=== PATIENT | male | born 1965 | race Asian ===

== ENCOUNTER 2017-08-09 13:09 | Emergency (ER) | END 2017-08-09 18:46 | disposition left against medical advice (07) ==

== ENCOUNTER 2018-10-17 09:10 | Observation (INO) | payer BC, OTHER ==
[~2018-10-17] VITALS: Ht 167.6 cm; Wt 79.5 kg
[~2018-10-17 09:10] MED LIST: AMLO-218 PO; ATOR40TA68 PO; LISI-471 PO; SITA100T11 PO; TAMS-14 PO
[2018-10-17] MEDS ORDERED: ASPIRIN 325 MG TAB PO STA (10:53)
[2018-10-17] MEDS ORDERED: SITA100T11 PO (12:27)
[2018-10-17] MEDS ORDERED: TAMS-14 PO (12:27)
[2018-10-17] MEDS ORDERED: POTA15TA9 PO (12:28)
[2018-10-17] MEDS ORDERED: GABA100C14 PO (12:28)
[2018-10-17] MEDS ORDERED: ALLO100T PO (12:29)
[2018-10-17] MEDS ORDERED: ATOR40TA68 PO (12:29)
[2018-10-17] MEDS ORDERED: LISI-471 PO (12:29)
[2018-10-17] MEDS ORDERED: CARI350T29 PO (12:30)
[2018-10-17] MEDS ORDERED: OMEP20CA16 PO (12:30)
[2018-10-17] MEDS ORDERED: AMLO5TAB4 PO (12:31)
[2018-10-17] MEDS ORDERED: TRAZ-149 PO (12:31)
[2018-10-17] MEDS ORDERED: CANA100T PO (12:31)
--- NOTE | 2018-10-17 13:14 | ERD ---
ER Documentation Chief Complaint Chief Complaint dizziness, cp since monday , cp relief after nitro HPI 53-year-old male presents to the emergency department complaining of chest pain. Patient states that over the last 3 days or so he is having nonspecific chest pain. The pain is nonspecific and non-provoked. It is in the center part of his chest and nonradiating. It is associated with no significant shortness of breath, nausea vomiting or diaphoresis. Patient took nitroglycerin and got some relief of the chest discomfort. ROS All systems reviewed and are negative except as per history of present illness. Medications Home Meds Reported Medications Canagliflozin (Invokana) 100 Mg Tablet, 100 MG PO QAM, TAB 10/17/18 Amlodipine Besylate* (Norvasc*) 5 Mg Tablet, 5 MG PO DAILY, TAB 10/17/18 Trazodone Hcl* (Desyrel*) 50 Mg Tab, 50 MG PO QHS, #30 TAB 10/17/18 Carisoprodol* (Carisoprodol*) 350 Mg Tablet, 350 MG PO BID PRN for MUSCLE SPASMS, TAB 10/17/18 Omeprazole* (Omeprazole*) 20 Mg Capsule.dr, 20 MG PO DAILY, #30 CAP 10/17/18 Atorvastatin* (Atorvastatin*) 40 Mg Tablet, 40 MG PO QHS, #30 TAB 10/17/18 Allopurinol* (Allopurinol*) 100 Mg Tablet, 100 MG PO TID, TAB 10/17/18 Lisinopril* (Lisinopril*) 20 Mg Tablet, 20 MG PO DAILY, #30 TAB 10/17/18 Gabapentin* (Gabapentin*) 100 Mg Capsule, 100 MG PO TID, #90 CAP 10/17/18 Potassium Citrate* (Potassium Citrate* ER) 15 Meq Tablet.er, 15 MEQ PO BID, TAB.SA 10/17/18 Tamsulosin Hcl* (Flomax*) 0.4 Mg Cap.er.24h, 0.4 MG PO HS, CAP 10/17/18 Sitagliptin* (Januvia*) 100 Mg Tablet, 100 MG PO QHS, #30 TAB 10/17/18 Discontinued Reported Medications Atorvastatin* (Atorvastatin*) 40 Mg Tablet, 40 MG PO QHS, #30 TAB 01/12/16 Lisinopril* (Lisinopril*) 20 Mg Tablet, 20 MG PO DAILY, TAB 04/20/15 Amlodipine Besylate* (Norvasc*) 10 Mg Tablet, 10 MG PO DAILY, TAB 04/20/15 Sitagliptin* (Januvia*) 100 Mg Tablet, 100 MG PO DAILY, TAB 04/20/15 Discontinued Scripts Tamsulosin Hcl* (Flomax*) 0.4 Mg Cap.er.24h, 0.4 MG PO BID, #30 CAP Prov:RAMILA PILLAI MD 09/02/15 Allergies Allergies: Coded Allergies: Penicillins (Verified Allergy, Severe, HIVES, 10/17/18) acetaminophen (Verified Allergy, Unknown, 10/17/18) codeine (Unverified Allergy, Unknown, HIVES, 10/17/18) fentanyl (Unverified Allergy, Unknown, 10/17/18) hydrocodone (Verified Allergy, Unknown, 10/17/18) hydromorphone (Verified Allergy, Unknown, HIVES, 10/17/18) ibuprofen (Verified Allergy, Unknown, 10/17/18) ketorolac (Unverified Allergy, Unknown, HIVES, 10/17/18) meperidine (Unverified Allergy, Unknown, hives, 10/17/18) morphine (Unverified Allergy, Unknown, HIVES, 10/17/18) tramadol (Verified Allergy, Unknown, HIVES, 10/17/18) Uncoded Allergies: IV DYE (Allergy, Unknown, 06/10/15) PMhx/Soc History of Surgery: Yes (left nephrectomy, L shoulder, R elbow) Anesthesia Reaction: No Hx Neurological Disorder: No Hx Respiratory Disorders: No Hx Cardiac Disorders: Yes (HTN) Hx Psychiatric Problems: No Hx Miscellaneous Medical Probl: Yes (diabetes II, CKD, kidney stones, HEART STENT) Hx Alcohol Use: Yes Hx Substance Use: No Hx Tobacco Use: No Smoking Status: Former smoker FmHx History of heart disease Physical Exam Vitals Vital Signs Date Temp Pulse Resp B/P (MAP) Pulse Ox O2 O2 Flow FiO2 Time Delivery Rate 10/17/18 98.2 105 18 157/79 99 09:14 (105) Physical Exam GENERAL: The patient is well developed and appropriate for usual state of health in no apparent distress HEENT: Pupils equal, round, and reactive to light. EOMI. There is no scleral icterus. NECK: C-spine is soft and supple, there is no meningismus. There is no cervical lymphadenopathy. LUNGS: Clear to auscultation bilaterally. There are no rales, wheezes or rhonchi. HEART: Regular rate and rhythm, no murmurs, clicks, rubs or gallops. ABDOMEN: Soft, non-tender, non-distended. There are bowel sounds in all four quadrants. No rebound or guarding. EXTREMITIES: There is no peripheral cyanosis or edema. No focal swelling or erythema. NEURO: The patient moves all four extremities with 5/5 strength. Cranial nerves II - XII are intact. Normal gait. Alert and oriented SKIN: There is no apparent rash or petechiae. HEME/LYMPHATIC: There is no evidence of excessive bruising or lymphedema. PSYCHIATRIC: The patient does not appear anxious or depressed. Result Diagram: 10/17/18 1110 10/17/18 1110 Results 24 hrs Laboratory Tests Test 10/17/18 11:10 White Blood Count 4.7 10^3/ul Red Blood Count 4.83 10^6/ul Hemoglobin 15.2 g/dl Hematocrit 44.6 % Mean Corpuscular Volume 92.3 fl Mean Corpuscular Hemoglobin 31.5 pg Mean Corpuscular Hemoglobin Concent 34.1 g/dl Red Cell Distribution Width 12.4 % Platelet Count 188 10^3/UL Mean Platelet Volume 10.2 fl Immature Granulocytes % 0.200 % Neutrophils % 64.2 % Lymphocytes % 24.7 % Monocytes % 7.7 % Eosinophils % 2.8 % Basophils % 0.4 % Nucleated Red Blood Cells % 0.0 /100WBC Immature Granulocytes # 0.010 10^3/ul Neutrophils # 3.0 10^3/ul Lymphocytes # 1.2 10^3/ul Monocytes # 0.4 10^3/ul Eosinophils # 0.1 10^3/ul Basophils # 0.0 10^3/ul Nucleated Red Blood Cells # 0.0 10^3/ul Sodium Level 143 mmol/L Potassium Level 4.1 mmol/L Chloride Level 105 mmol/L Carbon Dioxide Level 28 mmol/L Anion Gap 10 Blood Urea Nitrogen 17 mg/dl Creatinine 1.20 mg/dl Est Glomerular Filtrat Rate mL/min > 60 mL/min Glucose Level 94 mg/dl Calcium Level 9.5 mg/dl Total Bilirubin 0.3 mg/dl Direct Bilirubin 0.00 mg/dl Indirect Bilirubin 0.3 mg/dl Aspartate Amino Transf (AST/SGOT) 36 IU/L Alanine Aminotransferase (ALT/SGPT) 35 IU/L Alkaline Phosphatase 93 IU/L Troponin I < 0.012 ng/ml Total Protein 7.9 g/dl Albumin 4.5 g/dl Globulin 3.40 g/dl Albumin/Globulin Ratio 1.32 Current Medications Medications Dose Sig/Kayla Start Time Status Last (Trade) Ordered Route PRN Stop Time Admin Dose Reason Admin Aspirin 325 mg ONCE STAT 10/17/18 DC 10/17/18 (Aspirin) PO 10:53 11:25 10/17/18 10:54 Procedures/MDM Patient was taken to a room, seen and evaluated. Comfort measures were initiated. Diagnostic tests were ordered and reviewed. 3 LEAD RHYTHM STRIP: Normal sinus rhythm without ectopy EK lead EKG reviewed by myself: Normal Sinus Rhythm Normal [place] and intervals No ST elevation, depression, or T wave inversion, nonspecific ST and T wave changes without ST elevation Impression: Nondiagnostic EKG Second EKG reviewed by myself: Rate/rhythm: Normal sinus rhythm no ectopy [place]/intervals: Normal Ischemia: No ST elevation, ST depression, T wave inversion Impression: Nonischemic EKG RADIOLOGY: Reviewed with the radiologist CONSULTATION: 1310: We are awaiting case management for placement REEVALUATION: 1310: Diagnostic tests are initially nondiagnostic without evidence of obvious ischemia. Patient remains comfortable. MEDICAL DECISION MAKIN-year-old male with nonspecific chest pain and nonspecific EKG changes with a family history of heart problems presents the emergency department nonspecific chest pain. Initial diagnostic evaluation has been nondiagnostic with no evidence of obvious ischemia, aortic dissection or other high-risk concerns. However, given his multiple risk factors, he will require admission to the hospital for observation and monitoring. Placement into the hospital either here or at an outside facility will be arranged via case management. Departure Diagnosis: Primary Impression: Chest pain Condition: NICHOLAS Thrasher Oct 17, 2018 13:14
[2018-10-17] MEDS ORDERED: ONDANSETRON 4 MG INJ IV PRN ×2 (15:00→15:30)
[2018-10-17] MEDS ORDERED: NACL 0.9% 3 ML SYG IV SCH (15:30)
[2018-10-17] MEDS ORDERED: NITROGLYCERIN (SL) 0.4 MG TAB SL PRN (15:30)
[2018-10-17] MEDS ORDERED: DIPHENHYDRAMINE 50 MG INJ IV PRN (15:30)
[2018-10-17] MEDS ORDERED: morphine 2 MG INJ IV PRN ×2 (15:30→23:30)
[2018-10-17] MEDS ORDERED: CARISOPRODOL 350 MG TAB PO PRN (15:30)
--- NOTE | 2018-10-17 15:41 | HP ---
Date/Time of Note Date/Time of Note DATE: 10/17/18 TIME: 15:41 Assessment/Plan VTE Prophylaxis Pharmacological prophylaxis: other Lines/Catheters IV Catheter Type (from Nrsg): Saline Lock Assessment/Plan Hospital Course Patient is a male with past medical history significant for coronary artery disease with a stent, hypertension, diabetes mellitus, and left nephrectomy who presents to [facility] for chest pain. Patient states that for the past 2 days he has felt this central intermittent chest pain sensation. Patient states that it would happen regardless of movement or laying still. Patient states that there is nothing that necessarily brings it on or makes it grossly. Patient follows up with a regular doctor and on no basis as well as a rolling machine operator but does not go to this hospital. Patient takes a baby aspirin a day and takes all his other medication as well. Patient currently states the chest pain is nearly gone after a dose of nitroglycerin in the ED. Patient also states that there was some mild dizziness associated with this chest pain however right now he is not dizzy. Patient denies currently shortness of breath, nausea, vomiting, bowel or bladder dysfunction. 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 Objective Physical exam General: Patient is laying in bed and answers questions appropriately Mentation: Patient is alert and oriented 4, Head: Normocephalic atraumatic Eyes: EOMI, pupils reactive to light Neck: Supple, nontender, midline Respiratory: Clear to auscultation bilaterally Cardiovascular: regular rate, no obvious murmurs Gastrointestinal: non-tender to palpation, bowel sounds heard. Neurological: Moves all extremities spontaneously Skin: No new skin lesions Assessment and plan Chest pain, rule out ACS -Troponin negative, trend troponins -Cardiology consulted, patient's outpatient rolling machine operator does not come here but his partner does, we will see him in the morning -Nitroglycerin as needed -Aspirin -Statin -Pain control as tolerated, patient is mildly allergic to most narcotic pain medication however did do well with morphine in the past with Benadryl if needed, patient will try to only use nitroglycerin for chest pain -Echo Diabetes mellitus -Insulin sliding scale Coronary artery disease -Continue home meds, pt has stent done 4 years ago -Continue baby aspirin, patient takes daily Lower extremity neuropathy -Continue gabapentin -Muscle spasms -Chronic, continue Soma as needed History of left nephrectomy -Monitor, chronic Hypertension -Continue home meds Disposition -Continue to trend troponins, cardiology consultation pending Result Diagram: 10/17/18 1110 10/17/18 1110 Results 24hrs Laboratory Tests Test 10/17/18 11:10 White Blood Count 4.7 #L Red Blood Count 4.83 Hemoglobin 15.2 Hematocrit 44.6 Mean Corpuscular Volume 92.3 Mean Corpuscular Hemoglobin 31.5 Mean Corpuscular Hemoglobin Concent 34.1 Red Cell Distribution Width 12.4 Platelet Count 188 # Mean Platelet Volume 10.2 Immature Granulocytes % 0.200 Neutrophils % 64.2 Lymphocytes % 24.7 Monocytes % 7.7 Eosinophils % 2.8 Basophils % 0.4 Nucleated Red Blood Cells % 0.0 Immature Granulocytes # 0.010 Neutrophils # 3.0 Lymphocytes # 1.2 Monocytes # 0.4 Eosinophils # 0.1 Basophils # 0.0 Nucleated Red Blood Cells # 0.0 Sodium Level 143 Potassium Level 4.1 Chloride Level 105 Carbon Dioxide Level 28 Anion Gap 10 Blood Urea Nitrogen 17 Creatinine 1.20 Est Glomerular Filtrat Rate mL/min > 60 Glucose Level 94 Calcium Level 9.5 Total Bilirubin 0.3 Direct Bilirubin 0.00 Indirect Bilirubin 0.3 Aspartate Amino Transf (AST/SGOT) 36 Alanine Aminotransferase (ALT/SGPT) 35 Alkaline Phosphatase 93 Troponin I < 0.012 Total Protein 7.9 Albumin 4.5 Globulin 3.40 H Albumin/Globulin Ratio 1.32 HPI/ROS Admit Date/Time Admit Date/Time PMH/Family/Social Past Medical History Medications Current Medications Ondansetron HCl (Zofran Inj) 4 mg ER BRIDGE PRN IV NAUSEA/VOMITING; Start 10/17/18 at 15:00; Stop 10/18/18 at 14:59 Coded Allergies: Penicillins (Verified Allergy, Severe, HIVES, 10/17/18) acetaminophen (Verified Allergy, Unknown, 10/17/18) codeine (Unverified Allergy, Unknown, HIVES, 10/17/18) fentanyl (Unverified Allergy, Unknown, 10/17/18) hydrocodone (Verified Allergy, Unknown, 10/17/18) hydromorphone (Verified Allergy, Unknown, HIVES, 10/17/18) ibuprofen (Verified Allergy, Unknown, 10/17/18) ketorolac (Unverified Allergy, Unknown, HIVES, 10/17/18) meperidine (Unverified Allergy, Unknown, hives, 10/17/18) morphine (Unverified Allergy, Unknown, HIVES, 10/17/18) tramadol (Verified Allergy, Unknown, HIVES, 10/17/18) Uncoded Allergies: IV DYE (Allergy, Unknown, 06/10/15) Social History Smoking Status: Former smoker Exam/Review of Systems Vital Signs Vitals Vital Signs Date Temp Pulse Resp B/P (MAP) Pulse Ox O2 O2 Flow FiO2 Time Delivery Rate 10/17/18 98.2 105 18 157/79 99 09:14 (105) JETHRO SCHILLING Oct 17, 2018 15:41
[2018-10-17] MEDS ORDERED: LABETALOL HCL 20MG INJ IV PRN (16:00)
[2018-10-17] MEDS ORDERED: GLUCOSE GEL 15 GRAM TUBE PO PRN ×2 (16:30)
[2018-10-17] MEDS ORDERED: GLUCOSE GEL 15 GRAM TUBE BUCCAL PRN (16:30)
[2018-10-17] MEDS ORDERED: DEXTROSE 50% 50 ML SYRINGE IV PRN ×2 (16:30)
[2018-10-17] MEDS ORDERED: GLUCAGON 1 MG INJ IM PRN (16:30)
[2018-10-17] MEDS: INSULIN ASPART [NOVOLOG] 3 ML PEN SC SCH ×2 (17:58→21:00)
[2018-10-17 20:50] VITALS: BP 142/78; PULSE 65; RESP 18
[2018-10-17 21:00] VITALS: Ht 167.6 cm; Wt 79.5 kg
[2018-10-17] MEDS ORDERED: ATORVASTATIN 40 MG TAB PO SCH (21:00)
[2018-10-17] MEDS ORDERED: TAMSULOSIN (SR) 0.4 MG CAP PO SCH (21:00)
[2018-10-17] MEDS ORDERED: traZODone 50 MG TAB PO SCH (21:00)
[2018-10-17] MEDS: ALLOPURINOL 100 MG TAB PO SCH (22:12)
[2018-10-17] MEDS: GABAPENTIN 100 MG CAP PO SCH (22:12)
[2018-10-17 23:53] VITALS: BP 158/79; PULSE 68; RESP 18
[2018-10-18] VITALS (7 sets, daily range): BP systolic 118–126; BP diastolic 62–68; PULSE 46–67; RESP 18
[2018-10-18] MEDS ORDERED: ACCU-CHEK XX SCH (02:00)
[2018-10-18] MEDS ORDERED: PANTOPRAZOLE (EC) 40 MG TAB PO SCH (06:00)
[2018-10-18] MEDS: INSULIN ASPART [NOVOLOG] 3 ML PEN SC SCH ×2 (08:00→12:13)
[2018-10-18] MEDS: ALLOPURINOL 100 MG TAB PO SCH ×2 (08:20→12:11)
[2018-10-18] MEDS: GABAPENTIN 100 MG CAP PO SCH ×2 (08:20→12:11)
--- NOTE | 2018-10-18 08:37 | CONS ---
Assessment/Plan Assessment/Plan Hospital Course (Demo Recall) Chest pain: Atypical location, nonexertional and never resolved even post PCI. Trops negative. He has had stress testing for this in the past but most recent one was >1 yr prior. Repeat stress test is appropriate for evaluation and to avoid recurrent hospitalizations. CAD s/p PCI 2014 DM HTN Left nephrectomy Iodine allergy: hives during cath -Lexiscan today. If normal, ok for d/c -ASA, lipitor -lisinopril, amlodipine -reported bradycardia with BB so no longer taking it Consultation Date/Type/Reason Admit Date/Time Date of Consultation: Oct 18, 2018 Type of Consult Cardiology Reason for Consultation Chest pain Requesting Provider: JETHRO SCHILLING Date/Time of Note DATE: 10/18/18 TIME: 08:30 Hx of Present Illness 53 yo M with a h/o CAD s/p PCI 2014, DM, HTN, left nephrectomy, who presented with chest pain. The pain is left lateral lower chest wall and occurs at random times. He first had it 4 yrs ago leading to a stress test and PCI. He then continued to have random episodes unrelated to activity 2-3 times per week and has had continued workup including stress test 1 yr ago which was normal. 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 He was given morphine in the ED and discharged. The pain has no predictable quality and comes on at very random times. No orthopnea, PND, edema, dyspnea. per hPI Past Medical History per HPI Home Meds Reported Medications Canagliflozin (Invokana) 100 Mg Tablet, 100 MG PO QAM, TAB 10/17/18 Amlodipine Besylate* (Norvasc*) 5 Mg Tablet, 5 MG PO DAILY, TAB 10/17/18 Trazodone Hcl* (Desyrel*) 50 Mg Tab, 50 MG PO QHS, #30 TAB 10/17/18 Carisoprodol* (Carisoprodol*) 350 Mg Tablet, 350 MG PO BID PRN for MUSCLE SPASMS, TAB 10/17/18 Omeprazole* (Omeprazole*) 20 Mg Capsule.dr, 20 MG PO DAILY, #30 CAP 10/17/18 Atorvastatin* (Atorvastatin*) 40 Mg Tablet, 40 MG PO QHS, #30 TAB 10/17/18 Allopurinol* (Allopurinol*) 100 Mg Tablet, 100 MG PO TID, TAB 10/17/18 Lisinopril* (Lisinopril*) 20 Mg Tablet, 20 MG PO DAILY, #30 TAB 10/17/18 Gabapentin* (Gabapentin*) 100 Mg Capsule, 100 MG PO TID, #90 CAP 10/17/18 Potassium Citrate* (Potassium Citrate* ER) 15 Meq Tablet.er, 15 MEQ PO BID, TAB.SA 10/17/18 Tamsulosin Hcl* (Flomax*) 0.4 Mg Cap.er.24h, 0.4 MG PO HS, CAP 10/17/18 Sitagliptin* (Januvia*) 100 Mg Tablet, 100 MG PO QHS, #30 TAB 10/17/18 Discontinued Reported Medications Atorvastatin* (Atorvastatin*) 40 Mg Tablet, 40 MG PO QHS, #30 TAB 01/12/16 Lisinopril* (Lisinopril*) 20 Mg Tablet, 20 MG PO DAILY, TAB 04/20/15 Amlodipine Besylate* (Norvasc*) 10 Mg Tablet, 10 MG PO DAILY, TAB 04/20/15 Sitagliptin* (Januvia*) 100 Mg Tablet, 100 MG PO DAILY, TAB 04/20/15 Discontinued Scripts Tamsulosin Hcl* (Flomax*) 0.4 Mg Cap.er.24h, 0.4 MG PO BID, #30 CAP Prov:RAMILA PILLAI MD 09/02/15 Medications Current Medications Allopurinol (Zyloprim) 100 mg TID PO Last administered on 10/17/18at 22:12; Admin Dose 100 MG; Start 10/17/18 at 21:00 Amlodipine Besylate (Norvasc) 5 mg DAILY PO ; Start 10/18/18 at 09:00 Atorvastatin Calcium (Lipitor) 80 mg QHS PO Last administered on 10/17/18at 22:11; Admin Dose 80 MG; Start 10/17/18 at 21:00 Carisoprodol (Soma) 350 mg BID PRN PO MUSCLE SPASMS; Start 10/17/18 at 15:30 Gabapentin (Neurontin) 100 mg TID PO Last administered on 10/17/18at 22:12; Admin Dose 100 MG; Start 10/17/18 at 21:00 Lisinopril (Zestril) 20 mg DAILY PO ; Start 10/18/18 at 09:00 Tamsulosin HCl (Flomax) 0.4 mg HS PO Last administered on 10/17/18at 22:11; Admin Dose 0.4 MG; Start 10/17/18 at 21:00 Trazodone HCl (Desyrel) 50 mg QHS PO Last administered on 10/17/18at 22:11; Admin Dose 50 MG; Start 10/17/18 at 21:00 Pantoprazole (Protonix Tab) 40 mg DAILY@06 PO Last administered on 10/18/18 06:25; Admin Dose 40 MG; Start 10/18/18 at 06:00 IV Flush (NS 3 ml) 3 ml PER PROTOCOL IV ; Start 10/17/18 at 15:30 Ondansetron HCl (Zofran Inj) 4 mg Q6H PRN IV NAUSEA/VOMITING Last administered on 10/17/18at 16:52; Admin Dose 4 MG; Start 10/17/18 at 15:30 Aspirin (Aspirin) 81 mg DAILY PO ; Start 10/18/18 at 09:00 Nitroglycerin (Nitroglycerin (Sl Tab) 0.4 Mg) 1 tab Q5M PRN SL .CHEST PAIN Last administered on 10/17/18 22:45; Admin Dose 1 TAB; Start 10/17/18 at 15:30 Morphine Sulfate (morphine) 1 mg Q4H PRN IV SEVERE PAIN LEVEL 7-10 Last administered on 10/17/18at 16:53; Admin Dose 1 MG; Start 10/17/18 at 15:30 Diphenhydramine HCl (Benadryl) 25 mg Q6H PRN IV rash Last administered on 10/17/18 16:52; Admin Dose 25 MG; Start 10/17/18 at 15:30 Diagnostic Test (Pha) (Accu-Chek) 1 ea 02 XX ; Start 10/18/18 at 02:00 Insulin Aspart (Novolog Insulin Pen) NOVOLOG *MILD* ALGORITHM WITH MEALS BEDTIME SC ; Start 10/17/18 at 18:00 Labetalol HCl (Labetalol) 10 mg Q4 PRN IV sbp >160; Start 10/17/18 at 16:00 Miscellaneous Information 1 ea NOTE XX ; Start 10/17/18 at 16:30 Glucose (Glutose) 15 gm Q15M PRN PO DECREASED GLUCOSE; Start 10/17/18 at 16:30 Glucose (Glutose) 22.5 gm Q15M PRN PO DECREASED GLUCOSE; Start 10/17/18 at 16:30 Dextrose (D50w Syringe) 25 ml Q15M PRN IV DECREASED GLUCOSE; Start 10/17/18 at 16:30 Dextrose (D50w Syringe) 50 ml Q15M PRN IV DECREASED GLUCOSE; Start 10/17/18 at 16:30 Glucagon (Glucagen) 1 mg Q15M PRN IM DECREASED GLUCOSE; Start 10/17/18 at 16:30 Glucose (Glutose) 15 gm Q15M PRN BUCCAL DECREASED GLUCOSE; Start 10/17/18 at 16:30 Morphine Sulfate (morphine) 2 mg Q4H PRN IV SEVERE PAIN LEVEL 7-10; Start 10/17/18 at 23:30 Allergies: Coded Allergies: Penicillins (Verified Allergy, Severe, HIVES, 10/17/18) acetaminophen (Verified Allergy, Unknown, 10/17/18) codeine (Unverified Allergy, Unknown, HIVES, 10/17/18) fentanyl (Unverified Allergy, Unknown, 10/17/18) hydrocodone (Verified Allergy, Unknown, 10/17/18) hydromorphone (Verified Allergy, Unknown, HIVES, 10/17/18) ibuprofen (Verified Allergy, Unknown, 10/17/18) ketorolac (Unverified Allergy, Unknown, HIVES, 10/17/18) meperidine (Unverified Allergy, Unknown, hives, 10/17/18) morphine (Unverified Allergy, Unknown, HIVES, 10/17/18) tramadol (Verified Allergy, Unknown, HIVES, 10/17/18) Uncoded Allergies: IV DYE (Allergy, Unknown, 06/10/15) Social History Smoking Status: Never smoker Exam/Review of Systems Vital Signs Vitals Vital Signs Date Temp Pulse Resp B/P (MAP) Pulse Ox O2 O2 Flow FiO2 Time Delivery Rate 10/18/18 64 08:13 10/18/18 98.0 18 118/62 98 Room Air 07:27 (80) Intake and Output 10/17/18 10/17/18 10/18/18 1515:00 23:00 07:00 IntakeIntake Total 480 ml BalanceBalance 480 ml Exam Constitutional: alert, oriented Psych: no complaints, nl mood/affect Head: normocephalic, atraumatic Neck: supple; No jvd Respiratory: clear to auscultation; No crackles/rales Cardiovascular: regular rate and rhythm; No edema, No systolic murmur Gastrointestinal: soft, non-tender; No distended Neurological: nl mental status, nl speech Labs Result Diagram: 10/18/18 0547 10/18/18 0547 Results 24hrs Laboratory Tests Test 10/17/18 11:10 10/17/18 17:11 10/17/18 17:46 10/17/18 22:16 White Blood Count 4.7 #L Red Blood Count 4.83 Hemoglobin 15.2 Hematocrit 44.6 Mean Corpuscular 92.3 Volume Mean Corpuscular 31.5 Hemoglobin Mean Corpuscular 34.1 Hemoglobin Concent Red Cell 12.4 Distribution Width Platelet Count 188 # Mean Platelet Volume 10.2 Immature 0.200 Granulocytes % Neutrophils % 64.2 Lymphocytes % 24.7 Monocytes % 7.7 Eosinophils % 2.8 Basophils % 0.4 Nucleated Red Blood 0.0 Cells % Immature 0.010 Granulocytes # Neutrophils # 3.0 Lymphocytes # 1.2 Monocytes # 0.4 Eosinophils # 0.1 Basophils # 0.0 Nucleated Red Blood 0.0 Cells # Sodium Level 143 Potassium Level 4.1 Chloride Level 105 Carbon Dioxide Level 28 Anion Gap 10 Blood Urea Nitrogen 17 Creatinine 1.20 Est Glomerular > 60 Filtrat Rate mL/min Glucose Level 94 Calcium Level 9.5 Total Bilirubin 0.3 Direct Bilirubin 0.00 Indirect Bilirubin 0.3 Aspartate Amino 36 Transf (AST/SGOT) Alanine 35 Aminotransferase (AL T/SGPT) Alkaline Phosphatase 93 Troponin I < 0.012 < 0.012 Total Protein 7.9 Albumin 4.5 Globulin 3.40 H Albumin/Globulin 1.32 Ratio Creatine Kinase 149 Creatine Kinase 0.4 Index Creatinine Kinase MB 0.59 (Mass) Bedside Glucose 103 116 Test 10/17/18 23:43 10/18/18 05:47 10/18/18 08:08 Creatine Kinase 181 Creatine Kinase 0.3 Index Creatinine Kinase MB 0.59 (Mass) Troponin I < 0.012 White Blood Count 5.0 Red Blood Count 4.55 L Hemoglobin 14.3 Hematocrit 42.1 Mean Corpuscular 92.5 Volume Mean Corpuscular 31.4 Hemoglobin Mean Corpuscular 34.0 Hemoglobin Concent Red Cell 12.2 Distribution Width Platelet Count 170 Mean Platelet Volume 10.8 H Immature 0.200 Granulocytes % Neutrophils % 65.7 Lymphocytes % 23.3 Monocytes % 7.4 Eosinophils % 3.0 Basophils % 0.4 Nucleated Red Blood 0.0 Cells % Immature 0.010 Granulocytes # Neutrophils # 3.3 Lymphocytes # 1.2 Monocytes # 0.4 Eosinophils # 0.2 Basophils # 0.0 Nucleated Red Blood 0.0 Cells # Sodium Level 142 Potassium Level 4.1 Chloride Level 106 Carbon Dioxide Level 28 Anion Gap 8 Blood Urea Nitrogen 20 Creatinine 1.17 Est Glomerular > 60 Filtrat Rate mL/min Glucose Level 119 Hemoglobin A1c 5.5 Calcium Level 9.2 Magnesium Level 1.9 Total Bilirubin 0.4 Direct Bilirubin 0.00 Indirect Bilirubin 0.4 Aspartate Amino 33 Transf (AST/SGOT) Alanine 38 Aminotransferase (AL T/SGPT) Alkaline Phosphatase 78 Total Protein 6.9 # Albumin 3.9 Globulin 3.00 Albumin/Globulin 1.30 Ratio Triglycerides Level 98 Cholesterol Level 128 LDL Cholesterol, 59 Calculated HDL Cholesterol 49 Cholesterol/HDL 2.6 Ratio Thyroid Stimulating 1.280 Hormone (TSH) Bedside Glucose 113 Medications Medications Current Medications Allopurinol (Zyloprim) 100 mg TID PO Last administered on 10/17/18at 22:12; Admin Dose 100 MG; Start 10/17/18 at 21:00 Amlodipine Besylate (Norvasc) 5 mg DAILY PO ; Start 10/18/18 at 09:00 Atorvastatin Calcium (Lipitor) 80 mg QHS PO Last administered on 10/17/18at 22:11; Admin Dose 80 MG; Start 10/17/18 at 21:00 Carisoprodol (Soma) 350 mg BID PRN PO MUSCLE SPASMS; Start 10/17/18 at 15:30 Gabapentin (Neurontin) 100 mg TID PO Last administered on 10/17/18at 22:12; Admin Dose 100 MG; Start 10/17/18 at 21:00 Lisinopril (Zestril) 20 mg DAILY PO ; Start 10/18/18 at 09:00 Tamsulosin HCl (Flomax) 0.4 mg HS PO Last administered on 10/17/18at 22:11; Admin Dose 0.4 MG; Start 10/17/18 at 21:00 Trazodone HCl (Desyrel) 50 mg QHS PO Last administered on 10/17/18at 22:11; Admin Dose 50 MG; Start 10/17/18 at 21:00 Pantoprazole (Protonix Tab) 40 mg DAILY@06 PO Last administered on 10/18/18at 06:25; Admin Dose 40 MG; Start 10/18/18 at 06:00 IV Flush (NS 3 ml) 3 ml PER PROTOCOL IV ; Start 10/17/18 at 15:30 Ondansetron HCl (Zofran Inj) 4 mg Q6H PRN IV NAUSEA/VOMITING Last administered on 10/17/18at 16:52; Admin Dose 4 MG; Start 10/17/18 at 15:30 Aspirin (Aspirin) 81 mg DAILY PO ; Start 10/18/18 at 09:00 Nitroglycerin (Nitroglycerin (Sl Tab) 0.4 Mg) 1 tab Q5M PRN SL .CHEST PAIN Last administered on 10/17/18at 22:45; Admin Dose 1 TAB; Start 10/17/18 at 15:30 Morphine Sulfate (morphine) 1 mg Q4H PRN IV SEVERE PAIN LEVEL 7-10 Last administered on 10/17/18at 16:53; Admin Dose 1 MG; Start 10/17/18 at 15:30 Diphenhydramine HCl (Benadryl) 25 mg Q6H PRN IV rash Last administered on 10/17/18 16:52; Admin Dose 25 MG; Start 10/17/18 at 15:30 Diagnostic Test (Pha) (Accu-Chek) 1 ea 02 XX ; Start 10/18/18 at 02:00 Insulin Aspart (Novolog Insulin Pen) NOVOLOG *MILD* ALGORITHM WITH MEALS BEDTIME SC ; Start 10/17/18 at 18:00 Labetalol HCl (Labetalol) 10 mg Q4 PRN IV sbp >160; Start 10/17/18 at 16:00 Miscellaneous Information 1 ea NOTE XX ; Start 10/17/18 at 16:30 Glucose (Glutose) 15 gm Q15M PRN PO DECREASED GLUCOSE; Start 10/17/18 at 16:30 Glucose (Glutose) 22.5 gm Q15M PRN PO DECREASED GLUCOSE; Start 10/17/18 at 16:30 Dextrose (D50w Syringe) 25 ml Q15M PRN IV DECREASED GLUCOSE; Start 10/17/18 at 16:30 Dextrose (D50w Syringe) 50 ml Q15M PRN IV DECREASED GLUCOSE; Start 10/17/18 at 16:30 Glucagon (Glucagen) 1 mg Q15M PRN IM DECREASED GLUCOSE; Start 10/17/18 at 16:30 Glucose (Glutose) 15 gm Q15M PRN BUCCAL DECREASED GLUCOSE; Start 10/17/18 at 16:30 Morphine Sulfate (morphine) 2 mg Q4H PRN IV SEVERE PAIN LEVEL 7-10; Start 10/17/18 at 23:30 IRENE EL Oct 18, 2018 08:37
[2018-10-18] MEDS ORDERED: ASPIRIN 81 MG TAB PO SCH (09:00)
[2018-10-18] MEDS ORDERED: LISINOPRIL 20 MG TAB PO SCH (09:00)
[2018-10-18] MEDS ORDERED: AMLODIPINE 5 MG TAB PO SCH (09:00)
[2018-10-18] MEDS ORDERED: REGADENOSON 0.4 MG/5 ML SYG ONE (09:26)
--- NOTE | 2018-10-18 09:56 | RADRPT ---
Echocardiogram Report Patient Name: KELLE CARUSOPatient ID: [id number] : 1965 (53y 6m)Study Date: 10/18/2018 7:34:45 AM Gender: MAccession #: [id number] Tech: RoseKaylee Jin [facility] Location: [id number] Ref.Physician: JETHRO SCHILLING Height(Cm): BSA: Weight(Kg): Quality: AdequateAccount #: Procedures: Echocardiographic Report: Transthoracic echocardiogram with complete 2D, M-Mode, and doppler examination. Indications: Chest Pain. Measurements: 2D/M Mode Doppler Measurement Value Normal Range Measurement Value Normal Range LVIDd 2D 4.0 [ 4.2 - 5.8 ] cm AV Peak Lanre 1.4 [ 100.0 - 170.0 ] cm/sec LVIDs 2D 2.0 [ 2.5 - 4.0 ] cm AV Peak PG 8.0 [ 2.0 - 9.0 ] mmHg LVPWd 2D 1.2 [ 0.6 - 1.0 ] cm LVOT Peak Lanre 1.0 [ 70.0 - 110.0 ] cm/sec IVSd 2D 1.2 [ 0.6 - 1.0 ] cm LVOT Peak PG 4.0 [ 2.0 - 6.0 ] mmHg AoR Diam 2D 2.9 [ 2.6 - 3.4 ] cm MV E Peak Lanre 0.7 [ 60.0 - 130.0 ] cm/sec EDV 2D 69.6 [ 62.0 - 150.0 ] ml MV A Peak Lanre 0.6 [ 100.0 - 120.0 ] cm/sec ESV 2D 13.4 [ 21.0 - 61.0 ] ml MV E/A 1.2 [ 0.8 - 1.5 ] ratio EF 2D 80.7 [ 52.0 - 72.0 ] percent MV Decel Time 165 [ 104 - 258 ] msec LA Dimen 2D 3.3 [ 3.0 - 4.0 ] cm Lat E` Lanre 0.1 [ 10.0 - 15.0 ] cm/sec Lateral E/E` 5.1 [ 1.0 - 2.0 ] ratio MV E/A 1.2 [ 0.8 - 1.5 ] ratio Findings: Left Ventricle: Normal left ventricular systolic function. Normal left ventricular cavity size. Mild concentric left ventricular hypertrophy. Ejection fraction is visually estimated at 65 %. Tissue Doppler/Mitral Doppler indices are within normal limits. Right Ventricle: Normal right ventricular size. Normal right ventricular systolic function. Left Atrium: The left atrium is normal in size. Right Atrium: The right atrium is normal in size. Mitral Valve: Normal appearance and function of the mitral valve with trace physiologic regurgitation. Aortic Valve: Aortic sclerosis without significant stenosis. No aortic regurgitation. Tricuspid Valve: Normal appearance and function of the tricuspid valve with trace physiologic regurgitation. Unable to obtain RVSP due to minimal presence of tricuspid regurgitation. No evidence of tricuspid regurgitation. Pulmonic Valve: Normal pulmonic valve appearance. Pericardium: Normal pericardium with no significant pericardial effusion. Aorta: Normal aortic root. IVC: Normal size and normal respiratory collapse consistent with normal right atrial pressure. Conclusions: Normal left ventricular systolic function. Normal left ventricular cavity size. Mild concentric left ventricular hypertrophy. Ejection fraction is visually estimated at 65 %. Tissue Doppler/Mitral Doppler indices are within normal limits. Aortic sclerosis without significant stenosis. Unable to obtain RVSP due to minimal presence of tricuspid regurgitation. Normal size and normal respiratory collapse consistent with normal right atrial pressure. Electronically Signed By: Gelacio Tovar 2018-10-18 09:55:36 PDT
[2018-10-18] MEDS ORDERED: ASPI-831 PO (12:01)
--- NOTE | 2018-10-18 12:01 | PDOCDIS ---
Discharge Instructions CONDITION [id number] Patient Condition: [id number] Stable FOLLOW UP/APPOINTMENTS Follow-up Plan 1. Please follow-up with your workday financials consultant within 1 week. Please ask your primary care provider regarding further imaging regarding your chronic left chest wall pain and spasm 2. Please continue all other home medications JETHRO SCHILLING Oct 18, 2018 12:01
--- NOTE | 2018-10-18 12:04 | DS ---
Date/Time of Note Date/Time of Note DATE: 10/18/18 TIME: 12:04 Discharge Summary Admission/Discharge Info Admit Date/Time Oct 17, 2018 at 14:44 Discharge Date/Time Patient Condition: Stable Hospital Course Patient is a male with a past medical history significant for coronary artery disease, diabetes mellitus, chronic neuropathy, chronic left chest wall pain who presents to [facility] for left chest wall pain. The pain was an exacerbation of his chronic 4-year left chest wall pain however patient did have risk factors including coronary artery disease with a stent. Patient does follow-up with a chief librarian branch on a normal basis however the pain was intense during this admission however was controlled with nitroglycerin. Patient was seen by a chief librarian branch during the inpatient stay and received stress test. Stress test was negative for reversible ischemia and patient will be discharged to follow-up with his chief librarian branch. Patient states that he has an appointment with his chief librarian branch in 4 days. As far his his chronic left chest wall pain, CT of the chest was offered however patient stated that he would like to leave immediately at this time and would ask his chief librarian branch and his primary care physician for possible further imaging. Patient also was monitored on telemetry, did have episodes of bradycardia however this is well-known to the patient and the patient's chief librarian branch. Patient has no symptoms of bradycardia and cardiology approved the patient's discharge. Discharge diagnosis Chest pain, atypical, stress test negative Diabetes mellitus Coronary artery disease Lower extremity neuropathy History of left nephrectomy Hypertension Home Meds Reported Medications Canagliflozin (Invokana) 100 Mg Tablet, 100 MG PO QAM, TAB 10/17/18 Amlodipine Besylate* (Norvasc*) 5 Mg Tablet, 5 MG PO DAILY, TAB 10/17/18 Trazodone Hcl* (Desyrel*) 50 Mg Tab, 50 MG PO QHS, #30 TAB 10/17/18 Carisoprodol* (Carisoprodol*) 350 Mg Tablet, 350 MG PO BID PRN for MUSCLE SPASMS, TAB 10/17/18 Omeprazole* (Omeprazole*) 20 Mg Capsule.dr, 20 MG PO DAILY, #30 CAP 10/17/18 Atorvastatin* (Atorvastatin*) 40 Mg Tablet, 40 MG PO QHS, #30 TAB 10/17/18 Allopurinol* (Allopurinol*) 100 Mg Tablet, 100 MG PO TID, TAB 10/17/18 Lisinopril* (Lisinopril*) 20 Mg Tablet, 20 MG PO DAILY, #30 TAB 10/17/18 Gabapentin* (Gabapentin*) 100 Mg Capsule, 100 MG PO TID, #90 CAP 10/17/18 Potassium Citrate* (Potassium Citrate* ER) 15 Meq Tablet.er, 15 MEQ PO BID, TAB.SA 10/17/18 Tamsulosin Hcl* (Flomax*) 0.4 Mg Cap.er.24h, 0.4 MG PO HS, CAP 10/17/18 Sitagliptin* (Januvia*) 100 Mg Tablet, 100 MG PO QHS, #30 TAB 10/17/18 Discontinued Reported Medications Atorvastatin* (Atorvastatin*) 40 Mg Tablet, 40 MG PO QHS, #30 TAB 01/12/16 Lisinopril* (Lisinopril*) 20 Mg Tablet, 20 MG PO DAILY, TAB 04/20/15 Amlodipine Besylate* (Norvasc*) 10 Mg Tablet, 10 MG PO DAILY, TAB 04/20/15 Sitagliptin* (Januvia*) 100 Mg Tablet, 100 MG PO DAILY, TAB 04/20/15 Discontinued Scripts Tamsulosin Hcl* (Flomax*) 0.4 Mg Cap.er.24h, 0.4 MG PO BID, #30 CAP Prov:RAMILA PILLAI MD 09/02/15 Follow-up Plan 1. Please follow-up with your chief librarian branch within 1 week. Please ask your primary care provider regarding further imaging regarding your chronic left chest wall pain and spasm 2. Please continue all other home medications Primary Care Provider Not On Staff Doctor Pending Labs Laboratory Tests Test 10/17/18 17:11 10/17/18 17:46 10/17/18 22:16 10/17/18 23:43 Creatine 149 181 Kinase IU/L (23-200) IU/L (23-200) Creatine Kinase 0.4 0.3 Index Creatinine 0.59 0.59 Kinase MB ng/ml (0.0-2.4) ng/ml (0.0-2.4 (Mass) ) Troponin I < 0.012 < 0.012 ng/ml (0.000-0. ng/ml (0.000-0 120) .120) Bedside 103 116 Glucose mg/dL (70-220) mg/dL (70-220) Test 10/18/18 05:47 10/18/18 08:08 10/18/18 11:49 White Blood 5.0 Count 10^3/ul (4.8-10 .8) Red Blood 4.55 Count 10^6/ul (4.70-6 .10) Hemoglobin 14.3 g/dl (14.0-18.0 ) Hematocrit 42.1 % (42.0-52.0) Mean 92.5 Corpuscular fl (82.0-101.0) Volume Mean 31.4 Corpuscular pg (29.0-33.0) Hemoglobin Mean 34.0 Corpuscular g/dl (32.0-37.0 Hemoglobin Conc ) ent Red Cell 12.2 Distribution % (11.5-14.5) Width Platelet Count 170 10^3/UL (140-41 5) Mean Platelet 10.8 Volume fl (7.4-10.4) Immature 0.200 Granulocytes % % (0.001-0.429) Neutrophils % 65.7 % (39.0-77.0) Lymphocytes % 23.3 % (15.0-51.0) Monocytes % 7.4 % (0.0-11.0) Eosinophils % 3.0 % (0.0-7.0) Basophils % 0.4 % (0.0-2.0) Nucleated Red 0.0 Blood Cells % /100WBC (0.0-0. 0) Immature 0.010 Granulocytes # 10^3/ul (0.0-0. 031) Neutrophils # 3.3 10^3/ul (1.6-7. 5) Lymphocytes # 1.2 10^3/ul (0.8-2. 9) Monocytes # 0.4 10^3/ul (0.3-0. 9) Eosinophils # 0.2 10^3/ul (0.0-0. 5) Basophils # 0.0 10^3/ul (0.0-0. 1) Nucleated Red 0.0 Blood Cells # 10^3/ul (0.0-0. 0) Sodium Level 142 mmol/L (135-144 ) Potassium 4.1 Level mmol/L (3.5-5.1 ) Chloride Level 106 mmol/L (97-110) Carbon Dioxide 28 Level mmol/L (21-31) Anion Gap 8 (5-13) Blood Urea 20 mg/dl (7-20) Nitrogen Creatinine 1.17 mg/dl (0.61-1.2 4) Est Glomerular > 60 Filtrat mL/min (>60) Rate mL/min Glucose Level 119 mg/dl (70-220) Hemoglobin A1c 5.5 % (0-5.9) Calcium Level 9.2 mg/dl (8.4-10.2 ) Magnesium 1.9 Level mg/dl (1.7-2.5) Total 0.4 Bilirubin mg/dl (0.2-1.3) Direct 0.00 Bilirubin mg/dl (0.00-0.2 0) Indirect 0.4 Bilirubin mg/dl (0-1.1) Aspartate Amino 33 IU/L (15-46) Transf (AST/SGO T) Alanine 38 IU/L (13-69) Aminotransferas e (ALT/SGPT) Alkaline 78 Phosphatase IU/L (42-121) Total Protein 6.9 g/dl (6.1-8.1) Albumin 3.9 g/dl (3.3-4.9) Globulin 3.00 g/dl (1.3-3.2) Albumin/Globuli 1.30 n Ratio Triglycerides 98 Level mg/dl (0-149) Cholesterol 128 Level mg/dl (100-200) LDL 59 mg/dl Cholesterol, Calculated HDL 49 Cholesterol mg/dl (28-71) Cholesterol/HDL 2.6 RATIO Ratio Thyroid 1.280 Stimulating MIU/L (0.465-4. Hormone (TSH) 680) Bedside 113 188 Glucose mg/dL (70-220) mg/dL (70-220) JETHRO SCHILLING Oct 18, 2018 12:04
--- NOTE | 2018-10-18 15:53 | RADRPT ---
Vent Rate: 85 bpm RR Interval: 0 msec TN Interval: 170 msec QRS Duration: 88 msec QT Interval: 364 msec QTC Interval: 433 msec P-R-T [place]: 77 - 80 - 60 degrees Normal sinus rhythm Normal ECG Electronically Signed By: Tomás Mckeon
== END 2018-10-18 15:00 | disposition home or self-care (01) ==
LOC: E/R 09:10 → 6WM 14:44 → SUATTDRO 15:15
PROVIDERS: ADMIT Internal Medicine; ATTEND Internal Medicine
DX: R07.89 Other chest pain (principal); I12.9 Hypertensive chronic kidney disease with stage 1 through stage 4 chronic kidney disease, or unspecified chronic kidney disease; E11.22 Type 2 diabetes mellitus with diabetic chronic kidney disease; N18.9 Chronic kidney disease, unspecified; I25.10 Atherosclerotic heart disease of native coronary artery without angina pectoris; Z95.5 Presence of coronary angioplasty implant and graft; Z79.82 Long term (current) use of aspirin; E11.42 Type 2 diabetes mellitus with diabetic polyneuropathy; Z87.891 Personal history of nicotine dependence
CPT/HCPCS: 36415; 71045; 78452; 80053; 80061; 82550; 82553; 82962; 83036; 83735; 84443; 84484; 85025; 93005; 93017; 93306; 99285; A9500; A9505; G0378; J1200; J1815; J2270; J2405; J2785